=== PATIENT | female | born 1990 | race Two or more races ===

== ENCOUNTER 2022-07-06 09:37 | Observation (INO) | payer MEDICAID | END 2022-07-06 10:39 | disposition home or self-care (01) | LOC: LDRP 09:37 | PROVIDERS: ADMIT Obstetrics & Gynecology; ATTEND Obstetrics & Gynecology | DX: O26.892 Other specified pregnancy related conditions, second trimester (principal); R10.10 Upper abdominal pain, unspecified; R10.30 Lower abdominal pain, unspecified; Z3A.21 21 weeks gestation of pregnancy | CPT/HCPCS: 59025; 81002; G0378 ==

== ENCOUNTER 2022-09-04 09:00 | Observation (INO) | payer MEDICAID | END 2022-09-04 10:15 | disposition home or self-care (01) | LOC: LDRP 09:00 | PROVIDERS: ADMIT Obstetrics & Gynecology; ATTEND Obstetrics & Gynecology | DX: O24.419 Gestational diabetes mellitus in pregnancy, unspecified control (principal); Z3A.30 30 weeks gestation of pregnancy | CPT/HCPCS: 59025; 76818; 81002; 82948; 82962; 94760; G0378 ==

== ENCOUNTER 2022-09-11 09:00 | Observation (INO) | payer MEDICAID ==
[2022-09-11] MEDS ORDERED: PREN-96 PO (09:46)
[2022-09-11] MEDS ORDERED: FERR325T24 PO (09:46)
== END 2022-09-11 10:22 | disposition home or self-care (01) ==
LOC: UNDOADMOB 09:00 → LDRP 09:00 → UNDODISOB 10:22
PROVIDERS: ADMIT Obstetrics & Gynecology; ATTEND Obstetrics & Gynecology
DX: O24.419 Gestational diabetes mellitus in pregnancy, unspecified control (principal); Z3A.31 31 weeks gestation of pregnancy
CPT/HCPCS: 59025; 76818; 81002; 82962; 94760; G0378

== ENCOUNTER 2022-09-18 09:00 | Observation (INO) | payer MEDICAID ==
[~2022-09-18 09:00] MED LIST: FERR325T24 PO; PREN-96 PO
[2022-09-18] MEDS ORDERED: METF-370 PO (09:57)
== END 2022-09-18 10:33 | disposition home or self-care (01) ==
LOC: LDRP 09:00
PROVIDERS: ADMIT Obstetrics & Gynecology; ATTEND Obstetrics & Gynecology
DX: O24.410 Gestational diabetes mellitus in pregnancy, diet controlled (principal); Z3A.32 32 weeks gestation of pregnancy
CPT/HCPCS: 59025; 76818; 81002; 82948; G0378

== ENCOUNTER 2022-09-25 10:17 | Observation (INO) | payer MEDICAID ==
[~2022-09-25 10:17] MED LIST changes: +METF-370 PO
== END 2022-09-25 11:52 | disposition home or self-care (01) ==
LOC: LDRP 10:17 → UNDOADMOB 10:17 → LDRP 10:23 → UNDODISOB 11:52
PROVIDERS: ADMIT Obstetrics & Gynecology; ATTEND Obstetrics & Gynecology
DX: O24.414 Gestational diabetes mellitus in pregnancy, insulin controlled (principal); Z3A.33 33 weeks gestation of pregnancy; Z79.4 Long term (current) use of insulin
CPT/HCPCS: 59025; 76818; 81002; 82948; 82962; 94760; G0378

== ENCOUNTER 2022-09-28 08:54 | Observation (INO) | payer MEDICAID ==
[2022-09-28] MEDS ORDERED: INSU100I70 SC (10:52)
== END 2022-09-28 11:50 | disposition home or self-care (01) ==
LOC: UNDOADMOB 10:00 → LDRP 10:00 → UNDODISOB 11:50
PROVIDERS: ADMIT Obstetrics & Gynecology; ATTEND Obstetrics & Gynecology
DX: O24.414 Gestational diabetes mellitus in pregnancy, insulin controlled (principal); Z3A.33 33 weeks gestation of pregnancy; Z79.4 Long term (current) use of insulin
CPT/HCPCS: 59025; 76818; 81002; 82948; 82962; 94760; G0378

== ENCOUNTER 2022-10-02 11:12 | Observation (INO) | payer MEDICAID ==
[~2022-10-02 11:12] MED LIST changes: +INSU100I70 SC
== END 2022-10-02 13:17 | disposition home or self-care (01) ==
LOC: UNDOADMOB 11:12 → LDRP 11:12
PROVIDERS: ADMIT Obstetrics & Gynecology; ATTEND Obstetrics & Gynecology
DX: O24.119 Pre-existing type 2 diabetes mellitus, in pregnancy, unspecified trimester (principal); O99.891 Other specified diseases and conditions complicating pregnancy; M46.40 Discitis, unspecified, site unspecified; Z3A.34 34 weeks gestation of pregnancy
CPT/HCPCS: 59025; 76818; 81002; 82948; 82962; 94760; G0378

== ENCOUNTER 2022-10-09 08:21 | Observation (INO) | payer MEDICAID | END 2022-10-09 15:00 | disposition home or self-care (01) | LOC: UNDOADMOB 13:03 → LDRP 13:03 | PROVIDERS: ADMIT Obstetrics & Gynecology; ATTEND Obstetrics & Gynecology | DX: O24.419 Gestational diabetes mellitus in pregnancy, unspecified control (principal); Z3A.35 35 weeks gestation of pregnancy | CPT/HCPCS: 59025; 76818; 81002; 82948; 82962; G0378 ==

== ENCOUNTER 2022-10-12 09:17 | Observation (INO) | payer MEDICAID | END 2022-10-12 11:47 | disposition home or self-care (01) | LOC: UNDOADMOB 10:07 → LDRP 10:07 → UNDODISOB 11:47 | PROVIDERS: ADMIT Obstetrics & Gynecology; ATTEND Obstetrics & Gynecology | DX: O24.419 Gestational diabetes mellitus in pregnancy, unspecified control (principal); O26.893 Other specified pregnancy related conditions, third trimester; R06.02 Shortness of breath; Z3A.35 35 weeks gestation of pregnancy | CPT/HCPCS: 59025; 76818; 81002; 82948; 82962; 94760; G0378 ==

== ENCOUNTER 2022-10-16 07:16 | Observation (INO) | payer MEDICAID | END 2022-10-16 12:14 | disposition home or self-care (01) | LOC: LDRP 10:08 → UNDOADMOB 10:08 → LDRP 10:10 → UNDODISOB 12:14 | PROVIDERS: ADMIT Obstetrics & Gynecology; ATTEND Obstetrics & Gynecology | DX: O24.419 Gestational diabetes mellitus in pregnancy, unspecified control (principal); Z3A.36 36 weeks gestation of pregnancy | CPT/HCPCS: 59025; 76818; 81002; 82962; 94760; G0378 ==

== ENCOUNTER 2022-10-19 06:53 | Observation (INO) | payer MEDICAID | END 2022-10-19 11:31 | disposition home or self-care (01) | LOC: UNDOADMOB 09:53 → LDRP 09:53 | PROVIDERS: ADMIT Obstetrics & Gynecology; ATTEND Obstetrics & Gynecology | DX: O24.419 Gestational diabetes mellitus in pregnancy, unspecified control (principal); Z3A.36 36 weeks gestation of pregnancy | CPT/HCPCS: 59025; 76818; 81002; 82948; 82962; G0378 ==

== ENCOUNTER 2022-10-23 10:00 | Observation (INO) | payer MEDICAID | END 2022-10-23 11:13 | disposition home or self-care (01) | LOC: LDRP 10:00 | PROVIDERS: ADMIT Obstetrics & Gynecology; ATTEND Obstetrics & Gynecology | DX: O24.419 Gestational diabetes mellitus in pregnancy, unspecified control (principal); Z3A.37 37 weeks gestation of pregnancy | CPT/HCPCS: 59025; 76818; 81002; 82948; 82962; G0378 ==

== ENCOUNTER 2022-10-27 10:08 | Observation (INO) | payer MEDICAID ==
[2022-10-27] MEDS ORDERED: CEPH250C PO (11:46)
== END 2022-10-27 11:56 | disposition home or self-care (01) ==
LOC: UNDOADMOB 10:08 → LDRP 10:08 → UNDODISOB 11:56
PROVIDERS: ADMIT Obstetrics & Gynecology; ATTEND Obstetrics & Gynecology
DX: O23.43 Unspecified infection of urinary tract in pregnancy, third trimester (principal); O24.419 Gestational diabetes mellitus in pregnancy, unspecified control; Z3A.37 37 weeks gestation of pregnancy
CPT/HCPCS: 59025; 76818; 81002; 82948; 82962; G0378

== ENCOUNTER 2022-10-30 11:15 | Observation (INO) | payer MEDICAID ==
[~2022-10-30 11:15] MED LIST changes: +CEPH250C PO
== END 2022-10-30 13:01 | disposition home or self-care (01) ==
LOC: LDRP 11:15 → UNDOADMOB 11:24 → UNDODISOB 13:01
PROVIDERS: ADMIT Obstetrics & Gynecology; ATTEND Obstetrics & Gynecology
DX: O24.414 Gestational diabetes mellitus in pregnancy, insulin controlled (principal); Z3A.38 38 weeks gestation of pregnancy; Z79.4 Long term (current) use of insulin
CPT/HCPCS: 59025; 76818; 81002; 82948; 82962; 94760; G0378

== ENCOUNTER 2022-11-02 08:24 | Observation (INO) | payer MEDICAID | END 2022-11-02 11:15 | disposition home or self-care (01) | LOC: LDRP 10:05 | PROVIDERS: ADMIT Obstetrics & Gynecology; ATTEND Obstetrics & Gynecology | DX: O24.419 Gestational diabetes mellitus in pregnancy, unspecified control (principal); O62.9 Abnormality of forces of labor, unspecified; Z3A.38 38 weeks gestation of pregnancy | CPT/HCPCS: 59025; 76818; 81002; 82948; 82962; G0378 ==

== ENCOUNTER 2022-11-06 04:15 | Inpatient (IN) | payer MEDICAID ==
[2022-11-05 10:45] LABS: Basophils # (auto) 0 10 ^3/uL (0-0.2); Basophils % (auto) 0.6 % (0.0-2.0); Eosinophils # (auto) 0.1 10 ^3/uL (0-0.8); Eosinophils % (auto) 2.7 % (0.0-7.0); Hematocrit 37.1 % (36.0-46.0); Hemoglobin 12.2 g/dL (12.2-16.2); Lymphocytes # (auto) 1.5 10 ^3/uL (0.4-5.4); Lymphocytes % (auto) 29.6 % (10.0-50.0); Mean Corpuscular Hemoglobin 32.9 pg (28.0-32.0); Mean Corpuscular Volume 99.6 fL (80.0-100.0); Monocytes # (auto) 0.2 10 ^3/uL (0-1.3); Monocytes % (auto) 4.8 % (0.0-12.0); Neutrophils # (auto) 3.2 10 ^3/uL (1.6-8.6); Neutrophils % (auto) 62.3 % (37.0-80.0); Red Blood Cells 3.72 10^6/uL (4.0-5.20); Red Cell Distribution Width 13.5 % (11.8-14.3); White Blood Cell 5.1 10^3/uL (4.4-10.8)
[2022-11-05 11:03] LABS: INR 0.93 (0.9-1.15); Partial Thromboplastin Time 24.8 SEC (24.5-34.5); Prothrombin Time 9.8 sec (9.3-11.8)
[2022-11-05 11:22] LABS: Urine Bacteria FEW /hpf (None Seen); Urine Blood Negative /uL (Negative); Urine Clarity Clear (Clear); Urine Protein, UAD Negative (Negative); Urine Specific Gravity 1.012 (1.001-1.035); Urine Urobilinogen Normal (Negative); Urine WBC 2 /hpf (0 - 5); Urine pH 6.5 (5.0-8.0)
[2022-11-05 11:42] LABS: Alanine Aminotransferase 15 U/L (7-40); Albumin 3.9 g/dL (3.2-4.8); Alkaline Phosphatase 133 U/L (46-116); Anion Gap 10 (5-15); Aspartate Aminotransferase 18 U/L (13-40); BUN/Creatinine Ratio 12.5 (10.0-20.0); Blood Urea Nitrogen 10 mg/dL (9-23); Carbon Dioxide 20 mmol/L (20-30); Chloride 107 mmol/L (98-107); Glucose 141 mg/dL (74-106); Potassium 3.6 mmol/L (3.5-5.1); Sodium 137 mmol/L (136-145)
[2022-11-05 11:43] LABS: Bilirubin, Total 0.3 mg/dL (0.2-1.0); Total Protein 6.6 g/dL (5.7-8.2)
[2022-11-05 11:44] LABS: Amphetamine Screen, Urine Neg (NEGATIVE); Barbiturate Scree,Urine Neg (NEGATIVE); Benzodiazephine Screen, Urine Neg (NEGATIVE)
[2022-11-05 11:45] LABS: Cannabinoid Screen, Urine Neg (NEGATIVE); Cocaine Screen, Urine Neg (NEGATIVE); Opiate Scree,Urine Neg (NEGATIVE); Phencyclidine Screen, Urine Neg (NEGATIVE); Urine Color STRAW (Yellow)
[~2022-11-06] VITALS: Ht 152.4 cm; Wt 68.9 kg
[2022-11-06] VITALS (21 sets, daily range): BP systolic 83–123; BP diastolic 51–60; PULSE 52–90; RESP 16–18; TEMP 97.9–98.4; O2SAT 97–100
[2022-11-06] MEDS ORDERED: LACTATED RINGER'S 1,000 ML IV ONE (04:30)
[2022-11-06] MEDS: LACTATED RINGER'S 1,000 ML IV SCH ×3 (05:48→23:19)
[2022-11-06] MEDS ORDERED: ceFAZolin 1GM/50ML 50 ML IV ONE (06:30)
[2022-11-06] MEDS ORDERED: TETRACAINE 1% INJ 2 ML VIAL IJ ONE (07:22)
[2022-11-06] MEDS ORDERED: ePHEDrine SULFATE 50 MG/ML AMP ONE (07:24)
[2022-11-06] MEDS ORDERED: oxyTOCIN 10 UNIT/ML 10ML VIAL ONE (07:24)
[2022-11-06] MEDS ORDERED: PHENYLEPHRINE HCL 10 MG/ML VL ONE (07:24)
[2022-11-06] MEDS ORDERED: GLYCOPYRROLATE 0.2 MG/ML 1ML VIAL ONE (07:24)
[2022-11-06] MEDS ORDERED: KETOROLAC TROMETH 30 MG/ML 1ML VIAL ONE (07:24)
[2022-11-06] MEDS ORDERED: ONDANSETRON HCL 4 MG/2 ML VIAL ONE (07:24)
[2022-11-06] MEDS ORDERED: ceFAZolin 1GM VL ONE (07:24)
[2022-11-06] MEDS ORDERED: MORPHINE SULF PF 5 MG/10 ML VIAL ONE (07:24)
[2022-11-06] MEDS ORDERED: fentaNYL CITRATE 100 MCG/2 ML VL ONE (07:25)
[2022-11-06] MEDS ORDERED: SIMETHICONE 80 MG CHEWABLE TABLET PO PRN (07:45)
[2022-11-06] MEDS ORDERED: HYDROcodone-ACET 5/325MG TAB PO PRN (07:45)
[2022-11-06] MEDS ORDERED: ACCU-CHEK COMFORT CURVE STRIP VI ONE (08:45)
[2022-11-06] MEDS ORDERED: FAMOTIDINE (10MG/ML) 2ML VL IV PRN (08:45)
[2022-11-06] MEDS ORDERED: NALOXONE HCL 0.4 MG/ML VIAL IV PRN (08:45)
[2022-11-06] MEDS ORDERED: KETOROLAC TROMETH 30 MG/ML 1ML VIAL IV PRN (08:45)
[2022-11-06] MEDS ORDERED: ONDANSETRON HCL 4 MG/2 ML VIAL IV PRN (08:45)
[2022-11-06] MEDS ORDERED: diphenhdrAMINE HCL 50 MG/1 ML VL IV PRN (08:45)
[2022-11-06] MEDS ORDERED: DexAMETHasone SOD PHOS 10MG/1ML VIAL INJ IV PRN (08:45)
[2022-11-06] MEDS ORDERED: FAMOTIDINE (10MG/ML) 2ML VL IV ONE (09:10)
[2022-11-06] MEDS: ONDANSETRON HCL 4 MG/2 ML VIAL IV PRN ×2 (09:25→13:25)
[2022-11-06] MEDS: DOCUSATE SOD 100 MG CAP PO SCH ×2 (10:00→21:42)
[2022-11-06 12:11] LABS: Basophils # (auto) 0 10 ^3/uL (0-0.2); Basophils % (auto) 0.5 % (0.0-2.0); Eosinophils # (auto) 0.1 10 ^3/uL (0-0.8); Eosinophils % (auto) 1.2 % (0.0-7.0); Hematocrit 33.3 % (36.0-46.0); Hemoglobin 11.2 g/dL (12.2-16.2); Lymphocytes # (auto) 1.7 10 ^3/uL (0.4-5.4); Lymphocytes % (auto) 18.9 % (10.0-50.0); Mean Corpuscular Hgb Conc. 33.6 g/dL (32.0-36.0); Mean Corpuscular Volume 98.2 fL (80.0-100.0); Monocytes # (auto) 0.4 10 ^3/uL (0-1.3); Monocytes % (auto) 4.5 % (0.0-12.0); Neutrophils # (auto) 6.7 10 ^3/uL (1.6-8.6); Neutrophils % (auto) 74.9 % (37.0-80.0); Red Blood Cells 3.39 10^6/uL (4.0-5.20); Red Cell Distribution Width 13.5 % (11.8-14.3); White Blood Cell 8.9 10^3/uL (4.4-10.8)
[2022-11-07] VITALS (12 sets, daily range): BP systolic 93–110; BP diastolic 46–58; PULSE 60–76; RESP 16–18; TEMP 97.7–98.8; O2SAT 94–98
[2022-11-07 06:17] LABS: Basophils # (auto) 0 10 ^3/uL (0-0.2); Basophils % (auto) 0.4 % (0.0-2.0); Eosinophils # (auto) 0.1 10 ^3/uL (0-0.8); Eosinophils % (auto) 1.3 % (0.0-7.0); Hematocrit 34.3 % (36.0-46.0); Hemoglobin 11.7 g/dL (12.2-16.2); Lymphocytes # (auto) 1.7 10 ^3/uL (0.4-5.4); Lymphocytes % (auto) 20.1 % (10.0-50.0); Mean Corpuscular Hemoglobin 33.4 pg (28.0-32.0); Mean Corpuscular Volume 98.3 fL (80.0-100.0); Monocytes # (auto) 0.4 10 ^3/uL (0-1.3); Monocytes % (auto) 4.4 % (0.0-12.0); Neutrophils # (auto) 6.3 10 ^3/uL (1.6-8.6); Neutrophils % (auto) 73.8 % (37.0-80.0); Nucleated Red Blood Cells % 0.1 %; Red Blood Cells 3.49 10^6/uL (4.0-5.20); Red Cell Distribution Width 13.3 % (11.8-14.3); White Blood Cell 8.6 10^3/uL (4.4-10.8)
[2022-11-07] MEDS: HYDROcodone-ACET 5/325MG TAB PO PRN ×3 (06:50→17:24)
[2022-11-07 07:06] LABS: RPR Non Reactive (Non Reactive)
[2022-11-07] MEDS: DOCUSATE SOD 100 MG CAP PO SCH ×2 (11:34→22:21)
[2022-11-07] MEDS: IBUPROFEN 800 MG TAB PO PRN (20:58)
[2022-11-08] MEDS: HYDROcodone-ACET 5/325MG TAB PO PRN ×2 (01:37→10:19)
[2022-11-08 02:57] VITALS: BP 95/49; PULSE 69; RESP 16; TEMP 98.2; O2SAT 98
[2022-11-08] MEDS: IBUPROFEN 800 MG TAB PO PRN (05:29)
[2022-11-08 07:09] VITALS: BP 100/45; PULSE 65; RESP 16; TEMP 99.2; O2SAT 98
[2022-11-08] MEDS ORDERED: HYDR-4902 PO (09:15)
[2022-11-08] MEDS ORDERED: DOCU-94 PO (09:45)
[2022-11-08] MEDS ORDERED: IBU600T PO (09:49)
[2022-11-08] MEDS: DOCUSATE SOD 100 MG CAP PO SCH (10:17)
[2022-11-08 10:35] VITALS: BP 102/61; PULSE 68; RESP 16; TEMP 97.4; O2SAT 98
[2022-11-08 21:06] LABS: Treponema pallidum Ab (FTA-Ab) Non Reactive (Non Reactive)
== END 2022-11-08 13:16 | disposition home or self-care (01) | DRG 540 ==
LOC: UNDOADMIN 04:15 → LDRP 04:15
PROVIDERS: ADMIT Obstetrics & Gynecology; ATTEND Obstetrics & Gynecology
PROC: 10D00Z1 Extraction of Products of Conception, Low, Open Approach (ICD-10-PCS; principal; 2022-11-06 07:31)
DX: O32.1XX0 Maternal care for breech presentation, not applicable or unspecified (principal); O24.429 Gestational diabetes mellitus in childbirth, unspecified control; Z3A.39 39 weeks gestation of pregnancy; Z37.0 Single live birth
CPT/HCPCS: 36415; 59025; 76815; 80053; 80307; 81001; 82948; 82962; 84112; 85025; 85610; 85730; 86592; 86850; 86900; 86901; 94760; 94762; 96360; 96361; 96365; G0378; J0690; J1885; J2405; J2590; J3490